=== PATIENT | male | born 1990 | race Caucasian/White ===

== ENCOUNTER 2017-03-23 09:36 | Emergency (ER) | payer OTHER ==
[~2017-03-23] VITALS: Ht 167.6 cm; Wt 73.0 kg
[2017-03-23 09:49] VITALS: Ht 167.6 cm; Wt 73.0 kg
--- NOTE | 2017-03-23 13:06 | ERD ---
ER Documentation Chief Complaint Date/Time DATE: 03/23/17 TIME: 13:05 Chief Complaint for ppd test HPI Patient is a 27-year-old male with no medical problems who presents to get a PPD. 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 He went to [facility] to have his PPD placed but they refused. Therefore he had to come to the emergency department to get this test done. He denies any recent exposure for TB. He has no other complaints. His primary doctor is Dr. Mandel. ROS All systems reviewed and are negative except as per history of present illness. Allergies Allergies: Coded Allergies: No Known Allergy (Unverified , 03/23/17) PMhx/Soc Medical and Surgical Hx: pt denies Medical Hx, pt denies Surgical Hx Hx Alcohol Use: No Hx Substance Use: No Hx Tobacco Use: No Smoking Status: Never smoker FmHx Family History: No diabetes Physical Exam Vitals Vital Signs Date Time Temp Pulse Resp B/P Pulse Ox O2 Delivery O2 Flow Rate FiO2 03/23/17 09:49 98.0 84 16 111/78 100 Physical Exam Const: No acute distress Head: Atraumatic Eyes: Normal Conjunctiva ENT: Normal External Ears, Nose and Mouth. Neck: Full range of motion..~ No meningismus. Resp: Clear to auscultation bilaterally Cardio: Regular rate and rhythm, no murmurs Abd: Soft, non tender, non distended. Normal bowel sounds Skin: No petechiae or rashes Back: No midline or flank tenderness Ext: No cyanosis, or edema Neur: Awake and alert Psych: Normal Mood and Affect Procedures/MDM Patient is a 27-year-old male with no medical problems who presents for a PPD. The patient has no symptoms. The patient had a PPD placed. He can get this read in 48 hours by any healthcare professional. He does not need any further workup or admission to the hospital at this time. Outpatient management is appropriate. Departure Diagnosis: Primary Impression: PPD screening test Condition: Fair Patient Instructions: Tuberculosis Testing Referrals: Dr. Mandel Additional Instructions: Have a healthcare professional check your PPD within 48 hours. TC ESPANA MD Mar 23, 2017 13:06
== END 2017-03-23 10:56 | disposition home or self-care (01) ==
LOC: FTE 09:36
DX: Z11.1 Encounter for screening for respiratory tuberculosis (principal)
CPT/HCPCS: 99282

== ENCOUNTER 2019-09-11 06:46 | Emergency (ER) | payer BC, OTHER ==
[~2019-09-11] VITALS: Ht 170.2 cm; Wt 70.5 kg
[~2019-09-11 06:46] MED LIST: NAPR-985 PO
[2019-09-11 06:51] VITALS: BP 145/76; PULSE 73; RESP 17; Ht 170.2 cm; Wt 70.5 kg
== END 2019-09-11 07:18 | disposition home or self-care (01) ==
LOC: EEVIPCON 06:46 → FTE 06:46
DX: S99.911A Unspecified injury of right ankle, initial encounter (principal); X50.1XXA Overexertion from prolonged static or awkward postures, initial encounter; Y92.89 Other specified places as the place of occurrence of the external cause
CPT/HCPCS: 99282